=== PATIENT | female | born 1990 | race American Indian/Alaskan Native ===

== ENCOUNTER 2017-01-13 17:13 | Emergency (ER) | payer SELFPAY ==
--- NOTE | 2017-01-13 22:32 | XRay Report ---
FINAL REPORT EXAM: XR CHEST ROUTINE 2V HISTORY: cough TECHNIQUE: Two view chest PA and lateral PRIORS: None. FINDINGS: Cardiac and mediastinal contours are unremarkable. No focal pulmonary infiltrate is identified. No pleural fluid collection seen. Pulmonary vasculature is unremarkable. IMPRESSION: Negative two-view chest
[2017-01-14 00:11] LABS: Bilirubin,Urine NEG (Negative); Blood,Urine NEG (Negative); Ketones,Urine NEG (Negative); Leukocyte Esterase,Urine NEG (Negative); Mucus,Urine FEW /HPF; Nitrite,Urine NEG (Negative)
[2017-01-14] MEDS ORDERED: ULTRAM PO ONE (01:56)
[2017-01-14] MEDS ORDERED: ROCEPHIN IM ONE (02:15)
[2017-01-14] MEDS ORDERED: XYLOCAINE 1% MPF 5 mL INFILTRATI ONE (02:15)
[2017-01-14] MEDS ORDERED: ZITHROMAX PO ONE (02:15)
[2017-01-14] MEDS ORDERED: TRIPLE ANTIBIOTIC TP ONE (02:37)
--- NOTE | 2017-01-14 03:30 | Emergency Department Report ---
ED Female HPI - General Chief complaint: Upper Respiratory Infection Stated complaint: SICK,CONGESTION Source: patient Mode of arrival: Ambulatory Limitations: No Limitations - Related Data Previous Rx's Medication Instructions Recorded Last Taken Type Erythromycin [Erythromycin Ophth 0.5 applic OD Q8H #1 tube 01/14/17 Unknown Rx Oint] metroNIDAZOLE [Flagyl] 500 mg PO Q8HR #21 tablet 01/14/17 Unknown Rx Allergies Allergy/AdvReac Type Severity Reaction Status Date / Time olive oil AdvReac Rash Verified 01/13/17 17:46 ED Review of Systems ROS: Stated complaint: SICK,CONGESTION Other details as noted in HPI ED Past Medical Hx - Past Medical History Previous Medical History?: No Additional medical history: IRREGULAR HEATBEAT - Surgical History Past Surgical History?: No - Social History Smoking Status: Current Every Day Smoker Substance Use Type: Marijuana - Medications Home Medications: Home Medications Medication Instructions Recorded Confirmed Last Taken Type Erythromycin [Erythromycin Ophth 0.5 applic OD Q8H #1 tube 01/14/17 Unknown Rx Oint] metroNIDAZOLE [Flagyl] 500 mg PO Q8HR #21 tablet 01/14/17 Unknown Rx ED Physical Exam - General Limitations: No Limitations ED Course Vital Signs 01/13/17 17:39 Temperature 97 F L Pulse Rate 103 H Respiratory 14 Rate Blood Pressure 96/66 O2 Sat by Pulse 98 Oximetry Critical care attestation.: If time is entered above; I have spent that time in minutes in the direct care of this critically ill patient, excluding procedure time. ED Disposition Disposition: DC-01 TO HOME OR SELFCARE Condition: Stable Instructions: Bacterial Vaginosis (ED) Prescriptions: Erythromycin [Erythromycin Ophth Oint] 0.5 applic OD Q8H #1 tube metroNIDAZOLE [Flagyl] 500 mg PO Q8HR #21 tablet Referrals: PRIMARY CARE, [Primary Care Provider] - 3-5 Days Forms: STI Treatment and Prevention
[2017-01-14 03:57] VITALS: BP 113/82
== END 2017-01-14 03:30 | disposition home or self-care (01) ==
LOC: ED 17:13
DX: R09.81 Nasal congestion (principal); F17.210 Nicotine dependence, cigarettes, uncomplicated; F12.10 Cannabis abuse, uncomplicated; Z91.048 Other nonmedicinal substance allergy status
CPT/HCPCS: 71020; 81001; 81025; 87210; 87400; 87591; 96372; 99284; J0696; A6250